=== PATIENT | female | born 1955 | race Caucasian/White ===

== ENCOUNTER 2024-06-18 19:31 | Emergency (ER) | payer MEDICARE, BC ==
[~2024-06-18] VITALS: Ht 162.6 cm; Wt 112.0 kg
[2024-06-18 19:34] VITALS: O2SAT 98
[2024-06-18 20:19] VITALS: TEMP 36.7; O2SAT 98
[2024-06-18 20:32] VITALS: BP 173/85; PULSE 78; RESP 20
[2024-06-18] MEDS: IBUPROFEN 600MG TABLET PO STA (20:32)
[2024-06-18] MEDS ORDERED: IBUP-2029 MT (20:34)
== END 2024-06-18 21:18 | disposition home or self-care (01) ==
LOC: ER 19:31
DX: M25.571 Pain in right ankle and joints of right foot (principal); M25.531 Pain in right wrist; I10 Essential (primary) hypertension; E78.00 Pure hypercholesterolemia, unspecified; V89.2XXA Person injured in unspecified motor-vehicle accident, traffic, initial encounter; Y93.89 Activity, other specified; Y92.89 Other specified places as the place of occurrence of the external cause; Y99.8 Other external cause status
CPT/HCPCS: 71045; 73110; 73600; 93005; 99284